=== PATIENT | female | born 1950 | race Caucasian/White ===

== ENCOUNTER → 2017-10-13 | Outpatient (REF) ==
[2017-10-13 06:25] LABS: PROTHROMBIN TIME 11.6 SECONDS (9.7-12.8)
== END ==
LOC: ZMSC 06:09
PROVIDERS: Orthopaedic Surgery
DX: Z01.89 Encounter for other specified special examinations (principal)

== ENCOUNTER → 2017-10-14 | Outpatient (REF) ==
[2017-10-14 04:55] LABS: INR 1.1 (0.8-3.0); PROTHROMBIN TIME 12.6 SECONDS (9.7-12.8)
== END ==
LOC: ZMSC 04:48
PROVIDERS: Orthopaedic Surgery
DX: Z01.89 Encounter for other specified special examinations (principal)